=== PATIENT | female | born 1995 | race Two or more races ===

== ENCOUNTER 2023-03-17 18:47 | Emergency (ER) | payer SELFPAY ==
[~2023-03-17] VITALS: Ht 167.6 cm; Wt 74.4 kg
[2023-03-17 19:08] VITALS: BP 126/78; TEMP 98.2
[2023-03-17 21:16] VITALS: O2SAT 99
== END 2023-03-17 21:20 | disposition home or self-care (01) ==
LOC: ER 18:54
DX: R09.89 Other specified symptoms and signs involving the circulatory and respiratory systems (principal); Z60.2 Problems related to living alone